=== PATIENT | female | born 1980 | race Caucasian/White ===

== ENCOUNTER 2016-07-05 10:48 | Emergency (ER) | payer BC ==
[2016-07-05 11:15] VITALS: BMI 30.4
[2016-07-05 11:23] LABS: AUTOMATED BASOPHIL 0.5 % (0-2); AUTOMATED EOSINOPHIL 1.1 % (0-5); AUTOMATED LYMPH 19.7 % (17-44); AUTOMATED MONOCYTE 7.2 % (3-10); AUTOMATED NEUTROPHIL 71.5 % (45-76); MPV 7.9 fL (7.4-10.4)
[2016-07-05 11:36] LABS: BLOOD UREA NITROGEN 7 MG/DL (7-17); CALCIUM 9.3 MG/DL (8.4-10.2); CALCULATED OSMOLALITY 264 MOs/Kg (270-290); CHLORIDE 105 mEq/L (98-107); GLUCOSE 95 MG/DL (70-99); SODIUM LEVEL 138 mEq/L (137-146); TOTAL PROTEIN 7.7 G/DL (6.3-8.2)
[2016-07-05] MEDS ORDERED: RHo(D) IMMUNE GLOBULIN (HUMAN) 300 MCG SYRINGE IM ONE (13:13)
--- NOTE | 2016-07-05 13:14 | EDPRACDOC ---
- General Information Chief Complaint: Vaginal Bleeding Stated Complaint: VAGINAL BLEED (6WKS PREG) Time Seen by Provider: 07/05/16 13:11 Information Source: Patient Mode of Arrival: Car Home Medications: Home Medications Vit/Iron Fumarate/FA [ Tablet] 1 each PO DAILY #30 tablet 07/05 Allergies/Adverse Reactions: Allergies Allergy/AdvReac Type Severity Reaction Status Date / Time No Known Allergies Allergy Verified 07/05/16 11:12 - History of Present Illness Onset: Tuesday HPI: Patient reports vaginal bleeding started yesterday. Progressing to clots today, has used 1 pad. Patient reports mild lower cramping, denies nausea/vomiting. Reports ~6wks . A- blood type. Patient has not seen OBGYN. Description: Reports: Spontaneous Relevant History: Reports: Currently Blood Type: A- Pain Severity: Mild Vaginal Bleeding Description: Reports: Bright Red ED Past Medical History - History Reviewed Yes Nurses notes reviewed and agree except as marked No Past Medical History: Yes Patient has no past medical history - Patient Medical History Surgical History: Reports: No Significant History - Social Medical History ETOH: None Substance Abuse: None Lives In: Home EDM Review of Systems - Review of Systems ROS Negative Except as Marked: Yes All systems reviewed and were negative except as marked Constitutional: No Symptoms Reported Eyes: No Symptoms Reported Ears: No Symptoms Reported Throat: No Symptoms Reported Nose: No Symptoms Reported Mouth: No Symptoms Reported Respiratory: No Symptoms Reported Genitourinary: , Vaginal Bleeding Neurological: No Symptoms Reported - Physical Exam Constitutional: Alert (Awake), No apparent distress Oriented to: Time, Person, Place Last recorded Vital Signs: Last Vital Signs Temp 98.6 F 07/05/16 11:12 Pulse 89 07/05/16 11:12 Resp 20 07/05/16 11:12 BP 139/80 07/05/16 11:12 Pulse Ox 99 07/05/16 11:12 Oxygen Pulse Oxygen Saturation 99 O2 Device Room Air Oxygen Flow Rate Fraction of Inspired Oxygen ( FIO2) - HEENT Head: Normal ( normocephalic) Eye Exam: Normal (PERRL, EOMI, Sclera white) Nose: No Symptoms Reported (septum midline) Neck: Normal (FROM, trachea at midline) - Respiratory/Cardiovascular Respiratory: Normal - CTA (BBS clear to auscultation without adventitious sounds ) Cardiovascular: Normal (RRR without murmur, gallop or rub) - GI Auscultation: Normal (NABS) Tenderness: Non tender - Musculoskeletal Back: Normal (Non-Tender) Extremities: Normal (Normal tone, Pulses 2+ No cyanosis or edema, FROM) - Integumentary Skin: Normal, Warm, Dry Lymphatics: Normal (no adenopathy) - Neurologic Memory Impaired: Normal Motor Function: Normal (Normal tone, Pulses 2+ No cyanosis or edema, FROM) Mood Description: Normal ED Vaginal Exam External: Normal Vaginal Exam: Blood Vaginal Lesions: None Cervix: Blood Uterus: Normal size Adnexa: Normal - Re-evaluation Re-evaluation 1 Re-evaluation Time: 15:00 Patient's quant is very low, mild vaginal bleeding noted, A- blood type, no pain on exam. Discussed return for symptoms and need for repeat quant in 48 hours with PCP/OBGYN or in ED. - Results 07/05/16 11:13 07/05/16 11:13 WBC 9.6 xk/uL (3.8-10.8) 07/05/16 11:13 RBC 4.65 xM/uL (4.20-5.40) 07/05/16 11:13 Hgb 15.3 g/dL (12.0-16.0) 07/05/16 11:13 Hct 43.8 % (36-47) 07/05/16 11:13 MCV 94 fL (81-99) 07/05/16 11:13 MCH 32.8 pg (27-32) H 07/05/16 11:13 MCHC 34.9 g/dl (33-36) 07/05/16 11:13 RDW 12.9 % (11.5-14.5) 07/05/16 11:13 Plt Count 248 xk/uL (130-400) 07/05/16 11:13 MPV 7.9 fL (7.4-10.4) 07/05/16 11:13 Neut % (Auto) 71.5 % (45-76) 07/05/16 11:13 Lymph % (Auto) 19.7 % (17-44) 07/05/16 11:13 [place] % (Auto) 7.2 % (3-10) 07/05/16 11:13 Eos % (Auto) 1.1 % (0-5) 07/05/16 11:13 Baso % (Auto) 0.5 % (0-2) 07/05/16 11:13 Absolute Neuts (auto) 6.82 xk/uL (1.7-8.2) 07/05/16 11:13 Absolute Lymphs (auto) 1.82 xk/uL (0.65-4.75) 07/05/16 11:13 Sodium 138 mEq/L (137-146) 07/05/16 11:13 Potassium 4.0 mEq/L (3.5-5.1) 07/05/16 11:13 Chloride 105 mEq/L (98-107) 07/05/16 11:13 Carbon Dioxide 23 mMOL/L (22-33) 07/05/16 11:13 Anion Gap 14 mEq/L (8-16) 07/05/16 11:13 BUN 7 MG/DL (7-17) 07/05/16 11:13 Creatinine 0.70 MG/DL (0.52-1.04) 07/05/16 11:13 Estimated GFR (MDRD) > 60 mL/min (>=60) 07/05/16 11:13 Glucose 95 MG/DL (70-99) 07/05/16 11:13 Calculated Osmolality 264 MOs/Kg (270-290) L 07/05/16 11:13 Calcium 9.3 MG/DL (8.4-10.2) 07/05/16 11:13 Total Bilirubin 0.5 MG/DL (0.2-1.3) 07/05/16 11:13 AST 25 IU/L (14-36) 07/05/16 11:13 ALT 32 IU/L (9-52) 07/05/16 11:13 Alkaline Phosphatase 65 IU/L (38-126) 07/05/16 11:13 Total Protein 7.7 G/DL (6.3-8.2) 07/05/16 11:13 Albumin 4.3 G/DL (3.5-5.0) 07/05/16 11:13 Beta HCG, Quant 270.7 mIU/mL (<5) 07/05/16 11:13 Lab Results 07/05/16 07/05/16 07/05/16 11:13 11:13 11:13 WBC 9.6 RBC 4.65 Hgb 15.3 Hct 43.8 MCV 94 MCH 32.8 H MCHC 34.9 RDW 12.9 Plt Count 248 MPV 7.9 Neut % (Auto) 71.5 Lymph % (Auto) 19.7 [place] % (Auto) 7.2 Eos % (Auto) 1.1 Baso % (Auto) 0.5 Absolute Neuts (auto) 6.82 Absolute Lymphs (auto) 1.82 Sodium 138 Potassium 4.0 Chloride 105 Carbon Dioxide 23 Anion Gap 14 BUN 7 Creatinine 0.70 Estimated GFR (MDRD) > 60 Glucose 95 Calculated Osmolality 264 L Calcium 9.3 Total Bilirubin 0.5 AST 25 ALT 32 Alkaline Phosphatase 65 Total Protein 7.7 Albumin 4.3 Beta HCG, Quant 270.7 Decision Time to Discharge: 15:01 - Departure Disposition: Home Condition: Stable Final Diagnosis: Threatened in early Instructions: Threatened Miscarriage (ED) Education/Counseling Given To: Patient Education/Counseling Given Regarding: Diagnosis, Treatment, Prognosis, Follow Up Referrals: None,No Provider [Primary Care Provider] - One Week Ismael Mendez MD [Staff Physician] - 1-2 days Prescriptions: New Vit/Iron Fumarate/FA [ Tablet] 1 each PO DAILY #30 tablet Additional Instructions: Please followup with OBGYN in 2 days for a repeat beta Hcg to ensure it is increasing. Return to ED if symptoms worsen/change or concerns arise. Pelvic rest. : bed/vaginal rest, no prolonged standing or heavy lifting, return to the ED for any worsening symptoms or concerns especially worsening abdominal pain, fever or heavy vaginal bleeding (more than 1 pad per hour)
[2016-07-05 14:47] LABS: RBC/URINE 0-2 (0-5)
[2016-07-05 14:57] LABS: LEUKOCYTES/URINE NEG (NEGATIVE); NITRITE/URINE NEG (NEGATIVE); URINE OCCULT BLOOD 1+ (NEG/TRACE)
[2016-07-05 15:24] VITALS: BP 121/74; PULSE 75; TEMP 98.4
[2016-07-06 18:36] LABS: CHLAMY BY NUCLEIC ACID AMP Negative (Negative)
[2016-07-07 11:42] LABS: GC BY NUCLEIC ACID AMP Negative (Negative)
== END 2016-07-05 15:20 | disposition home or self-care (01) ==
LOC: ED 10:48
DX: O20.0 Threatened abortion (principal); Z3A.00 Weeks of gestation of pregnancy not specified
CPT/HCPCS: 36415; 80053; 81001; 84702; 85025; 85461; 86850; 86900; 86901; 87210; 87220; 87491; 87591; 96372; 99283; J2790